=== PATIENT | female | born 1995 | race Caucasian/White ===

== ENCOUNTER 2016-05-11 18:13 | Emergency (ER) | payer OTHER ==
[~2016-05-11] VITALS: Ht 162.6 cm; Wt 117.0 kg
[2016-05-11 18:31] VITALS: Ht 162.6 cm; Wt 117.0 kg
[2016-05-11] MEDS ORDERED: IBUPROFEN 800 MG TAB PO ONE (20:00)
--- NOTE | 2016-05-11 20:31 | RADRPT ---
PROCEDURE: CR, chest CLINICAL INDICATION: Chest pain. TECHNIQUE: AP chest. COMPARISON: None available. FINDINGS: The heart is not enlarged. There is no acute infiltrate in the lungs. No pleural effusion. IMPRESSION: 1. Unremarkable chest x-ray. RPTAT: GG .Ismael Barcenas MD, Date Time Electronically viewed and signed by .Ismael Barcenas MD, on 05/11/2016 20:30 .Y/
[2016-05-11] MEDS ORDERED: IBUP-1542 PO (20:45)
--- NOTE | 2016-05-11 21:05 | ERD ---
ER Documentation Chief Complaint Date/Time DATE: 05/11/16 TIME: 21:02 Chief Complaint dizziness; toney; nausea starting today HPI Patient is a 20-year-old female with no medical problems who presents with chest pain. She says that she went to [facility] 2 days ago. She has chest pain which started today. She has a history of the same in the past. The pain is been constant today. She still has the pain now. She has had no treatment as of yet. She has no shortness of breath. Her primary doctor is Dr. Gigi Manriquez. ROS All systems reviewed and are negative except as per history of present illness. Medications Home Meds Active Scripts Ibuprofen* (Motrin*) 600 Mg Tab, 600 MG PO Q6H Y for PAIN AND OR ELEVATED TEMP, #30 TAB Prov:BENJAMÍN WOODS MD 05/11/16 Allergies Allergies: Coded Allergies: No Known Allergy (Unverified , 09/10/12) PMhx/Soc Medical and Surgical Hx: pt denies Medical Hx, pt denies Surgical Hx Hx Alcohol Use: No Hx Substance Use: No Hx Tobacco Use: No Smoking Status: Never smoker FmHx Family History: No coronary disease Physical Exam Vitals Vital Signs Date Time Temp Pulse Resp B/P Pulse Ox O2 Delivery O2 Flow Rate FiO2 05/11/16 18:31 98.2 97 18 143/90 97 Physical Exam Const: No acute distress Head: Atraumatic Eyes: Normal Conjunctiva ENT: Normal External Ears, Nose and Mouth. Neck: Full range of motion..~ No meningismus. Resp: Clear to auscultation bilaterally Cardio: Regular rate and rhythm, no murmurs, chest wall pain with palpation Abd: Soft, non tender, non distended. Normal bowel sounds Skin: No petechiae or rashes Back: No midline or flank tenderness Ext: No cyanosis, or edema Neur: Awake and alert Psych: Normal Mood and Affect Results 24 hrs Current Medications Medications (Trade) Dose Ordered Sig/Biju Route PRN Reason Start Time Stop Time Status Last Admin Dose Admin Ibuprofen (Motrin) 800 mg ONCE ONCE PO 05/11/16 20:00 05/11/16 20:01 DC 05/11/16 19:58 Procedures/MDM EKG read by me: Rate/Rhythm: Regular rate and rhythm at a normal rate Intervals: Normal Impression: No evidence of ischemia or arrhythmia Chest x-ray negative per radiology. Patient is a 20-year-old female with no medical problems who presents with chest pain. Her EKG and chest x-ray are negative. Her urine test is negative. At this point I believe outpatient management is appropriate. The patient was given ibuprofen for pain. I believe this is likely musculoskeletal chest wall pain. I doubt acute coronary syndrome, pneumonia, pneumothorax, pulmonary embolism, or aortic dissection. The patient will need close follow- up with her primary doctor within 24-48 hours. Departure Diagnosis: Primary Impression: Chest pain Chest pain type: unspecified Qualified Code: R07.9 - Chest pain, unspecified type Additional Impression: Dizziness Condition: Fair Patient Instructions: Chest Pain, Uncertain Cause Additional Instructions: Call your primary care doctor TOMORROW for an appointment during the next 1-2 days.See the doctor sooner or return here if your condition worsens before your appointment time. BENJAMÍN WOODS MD May 11, 2016 21:05
== END 2016-05-11 21:14 | disposition home or self-care (01) ==
LOC: FTE 18:13
DX: R07.9 Chest pain, unspecified (principal); R42 Dizziness and giddiness
CPT/HCPCS: 71010; 93005; Z7502; Z7610